=== PATIENT | female | born 1990 | race Caucasian/White ===

== ENCOUNTER 2019-03-21 12:39 | Emergency (ER) | payer OTHER ==
[~2019-03-21] VITALS: Ht 160 cm; Wt 67.2 kg
[2019-03-21 12:43] VITALS: BP 150/73; PULSE 81; RESP 18; Ht 160 cm; Wt 67.2 kg
--- NOTE | 2019-03-21 13:45 | ERD ---
ER Documentation Chief Complaint Chief Complaint FEVER , SORE THROAT , TROUBLE SWALLOWING X 3 DAYS HPI 29-year-old female, previously healthy, presents the emergency department, complaining of 3 days with worsening of sore throat, associated with fever, headache and generalized arthralgia. The patient denies runny nose but reports persistent dry cough predominantly at night. Otherwise, no shortness of breath, no chest pain, no rashes. ROS All systems reviewed and are negative except as per history of present illness. Medications Home Meds Active Scripts Ibuprofen* (Motrin*) 400 Mg Tab, 400 MG PO Q6H PRN for PAIN AND OR ELEVATED TEMP, #20 TAB Prov:CRISTA ESCOBAR MD 03/21/19 Promethazine HCl/Codeine (Prometh-Codein 6.25-10 mg/5 ml) 5 Ml Syrup, 5 ML PO TID PRN for COUGH, #60 ML Prov:CRISTA ESCOBAR MD 03/21/19 Azithromycin* (Zithromax*) 250 Mg Tablet, 250 MG PO .ZPACK DIRECTED, #6 TAB TAKE 500 MG (2 TABS) THE FIRST DAY THEN 250 MG (1 TAB) DAYS 2-5 Prov:CRISTA ESCOBAR MD 03/21/19 PMhx/Soc Medical and Surgical Hx: pt denies Medical Hx, pt denies Surgical Hx Hx Alcohol Use: No Hx Substance Use: No Hx Tobacco Use: No Smoking Status: Never smoker FmHx Family History: No diabetes, No coronary disease Physical Exam Vitals Vital Signs Date Temp Pulse Resp B/P (MAP) Pulse Ox O2 O2 Flow FiO2 Time Delivery Rate 03/21/19 99.2 81 18 150/73 100 12:43 (98) Physical Exam Patient is in moderate distress due to pain. EYES: PERRLA, EOMI, injected sclerae EARS: Canals clear, erythematous tympanic membranes THROAT: Erythematous oropharynx with bilateral exudates NECK: Supple, + tender cervical lymphadenopathy. Full ROM without pain or tenderness. HEART: RRR, no rubs, murmurs, clicks or gallops. LUNGS: Bilateral rhonchi to auscultation. ABDOMEN: Soft, non-tender without masses or hepatosplenomegaly. EXTREMITIES: No edema bilaterally. BACK: Full ROM, no deformity, normal back exam NEURO: Cranial nerves grossly intact, no motor or sensory deficit Procedures/MDM Differential diagnosis include but not limited to: Tonsillar/pharyngeal infection bacterial/viral/fungal, parotitis, allergies, GERD. Less likely peritonsillar abscess, retropharyngeal abscess. No signs of upper respiratory obstruction Physical examination and clinical presentation consistent most likely with acute suppurative tonsillitis. Centor criteria 4/5. During the ED course the patient remained stable. Clinical impression discussed with the patient who agrees with management. The patient is stable to be treated outpatient and will be discharged home with a Rx for antibiotic and ibuprofen. Some side effects of prescribed medications (headache, rash, nausea, vomiting, diarrhea, drowsiness, habituation, bleeding, hypertension, interactions with other medications) were reviewed. The patient was instructed to follow up with the primary care provider in the next 48h. If symptoms persist, worsen or new symptoms develop, then patient should return to the ED immediately. Disclaimer: Inadvertent spelling and grammatical errors are likely due to EHR/dictation software use and do not reflect on the overall quality of patient care. Also, please note that the electronic time recorded on this note does not necessarily reflect the actual time of the patient encounter. Departure Diagnosis: Primary Impression: Acute suppurative tonsillitis Condition: Stable Additional Instructions: Thank you very much for allowing us to participate in your care. Your health and safety is our top priority at [facility]. Call your primary care doctor TOMORROW for an appointment during the next 2-4 days and bring all the information provided. Have prescriptions filled and follow precisely the directions on the label. If the symptoms get worse and your provider is unavailable, return to the Emergency Department immediately. CRISTA ESCOBAR MD March 21, 2019 13:45
[2019-03-21] MEDS ORDERED: IBUP-1561 PO (13:46)
[2019-03-21] MEDS ORDERED: PROM5SYR2 PO (13:46)
[2019-03-21] MEDS ORDERED: AZIT250T PO (13:46)
== END 2019-03-21 14:45 | disposition home or self-care (01) ==
LOC: FTE 12:39
DX: J03.90 Acute tonsillitis, unspecified (principal)
CPT/HCPCS: 99283

== ENCOUNTER 2019-06-14 13:36 | Emergency (ER) | payer OTHER ==
[~2019-06-14] VITALS: Ht 160 cm; Wt 70.9 kg
[~2019-06-14 13:36] MED LIST: AMOX1TAB10 PO; AZIT250T PO; BUTA1CAP38 PO; IBUP-1561 PO; ONDA4TAB8 PO; PRED20TA PO; PROM5SYR2 PO
[2019-06-14 13:38] VITALS: Ht 160 cm; Wt 70.9 kg
[2019-06-14] MEDS ORDERED: KETOROLAC 15 MG INJ IV STA (13:52)
[2019-06-14] MEDS ORDERED: ONDANSETRON 4 MG INJ IV STA (13:59)
[2019-06-14] MEDS ORDERED: SOD CHLORIDE 0.9% 250 ML IV ONE (14:00)
[2019-06-14] MEDS ORDERED: METHYLPREDNISOLONE 125 MG INJ IV ONE (14:00)
[2019-06-14] MEDS ORDERED: HYDROCODONE/APAP (5/325) TAB PO ONE (15:00)
[2019-06-14 15:20] VITALS: BP 129/91; PULSE 70; RESP 16
== END 2019-06-14 15:21 | disposition home or self-care (01) ==
LOC: FTE 13:36
DX: G43.519 Persistent migraine aura without cerebral infarction, intractable, without status migrainosus (principal); H66.003 Acute suppurative otitis media without spontaneous rupture of ear drum, bilateral
CPT/HCPCS: 81025; 85025; 96361; 96374; 96375; J2405; J2930; J7040; Z7502; Z7610